=== PATIENT | female | born 1990 | race Asian ===

== ENCOUNTER 2020-03-30 09:18 | Emergency (ER) | payer SELFPAY ==
[~2020-03-30] VITALS: Ht 165.1 cm; Wt 61.2 kg
[2020-03-30 09:27] VITALS: Ht 165.1 cm; Wt 61.2 kg
[2020-03-30 10:55] LABS: CALCIUM 9.3 mg/dL (8.5-10.1); CARBON DIOXIDE 27.5 mmol/L (21-32); CHLORIDE SERUM 100 mmol/L (98-107); CREATININE SERUM 0.8 mg/dL (0.6-1.0); GFR1 > 60 mL/min; GLUCOSE SERUM 100 mg/dL (74-106); POTASSIUM SERUM 3.4 mmol/L (3.5-5.1); SODIUM SERUM 136 mmol/L (136-145)
[2020-03-30 11:02] LABS: ALBUMIN 4.6 g/dL (3.4-5.0); ALKALINE PHOSPHATASE 46 U/L (46-116); ALT/SGPT 17 U/L (14-59); AST/SGOT 3 U/L (15-37); BILIRUBIN TOTAL 1.33 mg/dL (0.20-1.00); TOTAL PROTEIN, SERUM 7.9 g/dL (6.4-8.2)
[2020-03-30 11:09] LABS: BASOPHIL % 0.5 % (0-2); PLATELET COUNT 230 x10^3mcL (130-400); RED CELL DISTRIBUTION WIDTH 13.1 % (11.5-14.5)
[2020-03-30 11:42] LABS: AMPHETAMINE QUAL UR NONE DETECTED (See below)
[2020-03-30 12:59] VITALS: BP 107/51
== END 2020-03-30 12:59 | disposition home or self-care (01) ==
LOC: ED 09:18
PROVIDERS: Emergency Medicine
DX: F41.9 Anxiety disorder, unspecified (principal)
CPT/HCPCS: J2060; J7030; Q0092